=== PATIENT | male | born 1960 | race Caucasian/White ===

== ENCOUNTER 2017-07-18 05:18 | Day surgery (SDC) | payer OTHER ==
[2017-07-18] MEDS ORDERED: PERCOCET 5-3251 EACH PO (12:09)
[2017-07-18] MEDS ORDERED: NEURONTIN300 MG PO (12:09)
[2017-07-18] MEDS ORDERED: POLY119PG PO (12:10)
== END 2017-07-18 15:30 | disposition home or self-care (01) ==
LOC: CIR.AMB 05:18
DX: K40.90 Unilateral inguinal hernia, without obstruction or gangrene, not specified as recurrent (principal)

== ENCOUNTER → 2020-03-04 | Outpatient (CLI) | payer OTHER ==
[~2020-03-04] MED LIST: NEURONTIN300 MG PO; PERCOCET 5-3251 EACH PO; POLY119PG PO
== END | disposition home or self-care (01) ==
LOC: RAD 12:46
PROVIDERS: ATTEND Orthopaedic Surgery
DX: M54.5 Low back pain (principal)

== ENCOUNTER 2024-05-12 12:38 | Outpatient (CLI) | payer OTHER | END 2024-05-12 12:40 | disposition home or self-care (01) | LOC: RAD 12:38 | PROVIDERS: ATTEND Orthopaedic Surgery | DX: M54.6 Pain in thoracic spine (principal); M54.50 Low back pain, unspecified ==